=== PATIENT | male | born 1995 | race African-American/Black ===

== ENCOUNTER 2023-10-05 19:48 | Emergency (ER) | payer SELFPAY ==
[2023-10-05] MEDS ORDERED: metroNIDAZOLE 250 MG Tab PO ONE (20:09)
== END 2023-10-05 20:24 | disposition home or self-care (01) ==
LOC: MW.ED 19:48
DX: Z20.2 Contact with and (suspected) exposure to infections with a predominantly sexual mode of transmission (principal)
CPT/HCPCS: 99283; A9270